=== PATIENT | female | born 1980 | race Caucasian/White ===

== ENCOUNTER 2024-06-03 11:55 | Emergency (ER) | payer OTHER ==
[~2024-06-03] VITALS: Ht 149.9 cm; Wt 63.5 kg
[~2024-06-03 11:55] MED LIST: Z CHANTIX
[2024-06-03 11:56] VITALS: PULSE 95; RESP 18; TEMP 98.7; O2SAT 98
[2024-06-03] MEDS ORDERED: VALTREX1000 MG PO (12:21)
[2024-06-03] MEDS: LIDOCAINE VISC 2% SOLN 15 ML UDC PO ONE (12:22)
== END 2024-06-03 12:27 | disposition home or self-care (01) ==
LOC: FSED 11:59
DX: K13.79 Other lesions of oral mucosa (principal); B00.9 Herpesviral infection, unspecified
CPT/HCPCS: 99283